=== PATIENT | female | born 1970 | race Caucasian/White ===

== ENCOUNTER 2016-08-03 10:44 | Emergency (ER) | payer OTHER ==
[2016-08-03 11:34] VITALS: RESP 16; TEMP 98.2
[2016-08-03] MEDS ORDERED: NS 1,000 ML IV ONE (11:58)
[2016-08-03] MEDS ORDERED: ONDANSETRON 4 MG/2 ML VIAL IVP ONE (11:59)
--- NOTE | 2016-08-03 11:59 | UCPHY ---
H & P Patient Type: New Chief Complaint Nursing Narrative: burning , constipation/ fullness, in abd. po solids unable to keep down since last Wednesday. Anxiety related pt believes. Just started celexa 3 days ago. Took xanax at 0500 Time Seen by Provider: 08/03/16 11:40 HPI/ROS: CHIEF COMPLAINT: Ongoing abdominal cramping, nausea, vomiting, diarrhea, early satiety HISTORY OF PRESENT ILLNESS: 46-year-old female history irritable bowel syndrome , notes increasing personal and professional stressors since June 2016, complaining of waxing and waning abdominal cramping, vomiting, nausea, diarrhea , early satiety which started shortly after going to see her family in [facility], [place], operated by [facility] who is experiencing family illness. While there she was seen in 2 urgent cares and emergency department. She notes that her symptoms do appear to improve she consumes Xanax. She has also seen her primary care provider and was recently prescribed Celexa which she started 3 days ago. She notes increasing anxiety since starting Celexa. Contacted her PCP this morning recommend she come to the Urgent Care for imaging studies of her abdomen. She has remote history of cholecystectomy. No history of other abdominal surgeries. She is concerned because a family history of colon cancer. She denies: Fever, chills, urinary complaints, back or flank pain, focal abdominal pain. PRIMARY CARE PROVIDER: Dr.Mira Almeida REVIEW OF SYSTEMS: A ten point review of systems was performed and is negative with the exception of the items mentioned in the HPI PAST MEDICAL & SURGICAL HISTORY: IBS. Anxiety. SOCIAL HISTORY: nonsmoker FAMILY HISTORY: family history of colon cancer PHYSICAL EXAM (Prior to examination, patient consented to physical exam, hands were washed and my usual and customary physical exam procedures followed) 1) GENERAL: Well-developed, well-nourished, alert and oriented. Appears anxious. Tearful. 2) HEAD: Normocephalic, atraumatic 3) HEENT: Pupils equal, round, reactive to light bilaterally. Sclera anicteric. Nasopharynx, oropharynx, clear, no lesions. Moist mucous membranes 4) NECK: Full range of motion, no meningeal signs. 5) LUNGS: Clear auscultation bilaterally, no wheezes, no rhonchi, no retractions. 6) HEART: Regular rate and rhythm, no murmur, no heave, no gallop. 7) ABDOMEN: No guarding, no rebound, no focal tenderness, negative McBurney's, negative Harris's, negative Rovsing's, negative peritoneal sign, I am unable to elicit any abdominal pain on exam 8) MUSCULOSKELETAL: Moving all extremities, no focal areas of tenderness, no obvious trauma. No peripheral edema or discoloration. 9) BACK: No CVA tenderness, no midline vertebral tenderness, no fluctuance, no step-off, no obvious trauma, no visual or palpable abnormality. 10) SKIN: No rash, no petechiae. 11) Psychiatric: Patient is oriented X 3, there is no agitation. DIFFERENTIAL DIAGNOSIS: [My differential diagnosis includes, but is not limited to, acute appendicitis, acute cholecystitis, bowel obstruction, acute pancreatitis, ovarian torsion, ectopic , gastritis and urinary tract infection. The patient understands that this diagnosis is provisional and can never be 100% accurate. This is a partial list of diagnoses considered. These considerations are based on history, physical exam, past history and reassessment. - Personal History LMP (Females 10-55): 22-28 Days Ago - Medical/Surgical History Other PMH: PCP Adrienne Almeida . Surg GB. MEDs : anxiety /hypothyroid/gerd /. FLu vacc NONE. Tetanus UTD - Family History Significant Family History: No pertinent family hx - Social History Smoking Status: Current some day smoker Constitutional: Initial Vital Signs Temperature (C) 36.8 C 08/03/16 11:28 Heart Rate 75 08/03/16 11:28 Respiratory Rate 16 08/03/16 11:28 Blood Pressure 128/86 H 08/03/16 11:28 O2 Sat (%) 95 08/03/16 11:28 O2 Delivery Mode Room Air Allergies/Adverse Reactions: avocado [Avocado] Allergy (Intermediate, Verified 08/03/16 11:35) STOMACH PAIN/BURNING pineapple [Pineapple] Allergy (Intermediate, Verified 08/03/16 11:35) STOMACH PAINS/BURNING LLOYD NUTS Allergy (Severe, Uncoded 08/03/16 11:35) NARES GETS REALLY WIDE ALMONDS Allergy (Intermediate, Uncoded 08/03/16 11:35) STOMACH PAIN/BURNING ENVIRONMENTAL Allergy (Mild, Uncoded 08/03/16 11:35) SNEEZING Home Medications: Medication Instructions Recorded Alprazolam 08/03/16 Celexa 08/03/16 Omeprazole 08/03/16 Ondansetron Odt [Zofran Odt] 4 mg PO Q4PRN PRN #10 tab 08/03/16 Synthroid 08/03/16 Medical Decision Making - Diagnostics Imaging: Contrast Enhanced CT Scan of the Abdomen and Pelvis Clinical History: 46-year-old female presenting to the ED with abdominal pain for one week and bloating, with some nausea and vomiting. Her surgical history is notable for a prior cholecystectomy. Rule out appendicitis. Technique: Oral contrast was not administered. Following the uncomplicated intravenous administration of 90 mL of Isovue-370, a multidetector helical CT scan was obtained from the lung bases inferiorly through the proximal femora, with images reformatted at 5.00 and 1.25 mm increments , and reviewed at a variety of window and level settings. Parasagittal and paracoronal reconstructed images are reviewed on the workstation. The DFOV is 40.7 cm. Dose reduction techniques were utilized. Comparison Study: Limited right upper quadrant abdominal sonography, dated September 24, 2011 Findings: Contrast-Enhanced CT Scan of the Abdomen: The lung bases are clear. The visualized cardiac chambers and pericardium are unremarkable. In the interim, the patient has had a cholecystectomy. The liver is notable for a 10 mm hypodense lesion near the gallbladder fossa. On the previous sonogram in 2011, there was an echogenic lesion in this location measuring 1.0 x 1.0 x 1.2 cm, suggesting that this may represent a small hemangioma. It does not have peripheral nodular enhancement, however delayed sequences were not acquired. The spleen, bile ducts , pancreas, adrenal glands, and the kidneys are normal in appearance. The aorta tapers normally, and the IVC is normal in caliber. There is no ascites or free air. There are some fluid-filled loops of duodenum and jejunum in the [id number] abdomen, with no mechanical obstruction. These are nonspecific findings; however, given the patient's symptoms, a low-grade enteritis cannot be excluded. The CT appearance of large bowel is unremarkable. The terminal ileum is fluid-filled, with no wall thickening. There is no pericecal inflammatory change. There is some rare nonpathologically enlarged right lower quadrant mesenteric lymph nodes. There is a short and tubular-shaped air- filled structure which could represent a truncated appendix with no associated inflammation noted on axial series 3, images 243-247. Contrast-Enhanced CT Scan of the Pelvis: There are no masses, free fluid, or free air. The bladder has a normal contour. There is normal enhancement of the vasculature. The soft tissues are normal in appearance. The uterus, round ligaments, and the adnexal structures appear normal. Skeletal System: Normal. Impression: 1. Status post cholecystectomy. 2. 10 mm hypodense lesion near the gallbladder fossa, previously reported on a sonogram in 2011. 3. There is no appendiceal or pericecal inflammation identified. 4. Possible low-grade duodenal and jejunal enteritis. There is no mechanical obstruction. Results were discussed with Ramon Olmstead PA-C. A Document Only message has been documented for Maureen Olmstead in the [employer] Critical Result system on 08/03/2016 13:35, Message ID [id number]. Dictated By: Garrick Perkins MD Images reviewed by myself ED Course/Re-evaluation: 1:49 p.m.: Re-evaluation. Discussed her diagnostic results including her CT imaging. Re-examined her abdomen which remained soft no guarding or rebound no McBurney's point pain. I am unable to elicit any abdominal pain on exam. No distention. discussed possible etiologies for her abdominal pain. At this time I think that acute surgical abdominal pathology such as acute bowel obstruction , acute appendicitis, less than likely. I recommended follow-up with her primary care provider and with Gastroenterology. She has been given this referral information. My usual andcustomary strict return precautions provided. - Data Points Laboratory Results: Laboratory Results 08/03/16 11:43 08/03/16 11:43 08/03/16 08/03/16 08/03/16 13:40 12:55 11:43 WBC 8.49 10^3/uL (3.80-9.50) RBC 4.82 10^6/uL (4.18-5.33) Hgb 15.4 g/dL (12.6-16.3) Hct 43.7 % (38.0-47.0) MCV 90.7 fL (81.5-99.8) MCH 32.0 pg (27.9-34.1) MCHC 35.2 g/dL (32.4-36.7) RDW 12.0 % (11.5-15.2) Plt Count 322 10^3/uL (150-400) MPV 10.2 fL (8.7-11.7) Neut % (Auto) 69.2 % (39.3-74.2) Lymph % (Auto) 22.5 % (15.0-45.0) Paulding % (Auto) 6.9 % (4.5-13.0) Eos % (Auto) 0.4 L % (0.6-7.6) Baso % (Auto) 0.8 % (0.3-1.7) Nucleat RBC Rel Count 0.0 % (0.0-0.2) Absolute Neuts (auto) 5.87 10^3/uL (1.70-6.50) Absolute Lymphs (auto) 1.91 10^3/uL (1.00-3.00) Absolute Monos (auto) 0.59 10^3/uL (0.30-0.80) Absolute Eos (auto) 0.03 10^3/uL (0.03-0.40) Absolute Basos (auto) 0.07 10^3/uL (0.02-0.10) Absolute Nucleated RBC 0.00 10^3/uL (0-0.01) Immature Gran % 0.2 % (0.0-1.1) Immature Gran # 0.02 10^3/uL (0.00-0.10) Sodium 141 mEq/L (134-144) Potassium 4.0 mEq/L (3.5-5.2) Chloride 106 mEq/L (97-110) Carbon Dioxide 22 mEq/l (22-31) Anion Gap 13 mEq/L (8-16) BUN 13 mg/dL (7-23) Creatinine 0.9 mg/dL (0.6-1.0) Estimated GFR > 60 Glucose 107 H mg/dL (70-100) Calcium 9.9 mg/dL (8.5-10.4) Total Bilirubin 0.9 mg/dL (0.1-1.4) Conjugated Bilirubin 0.3 mg/dL (0.0-0.5) Unconjugated Bilirubin 0.6 mg/dL (0.0-1.1) AST 16 IU/L (14-46) ALT 26 IU/L (9-52) Alkaline Phosphatase 59 IU/L (38-126) Total Protein 7.9 g/dL (6.3-8.2) Albumin 4.2 g/dL (3.5-5.0) Lipase 156.0 IU/L (23-300) Beta HCG, Qual NEGATIVE Urine Color YELLOW Urine Appearance CLEAR Urine pH 5.0 (5.0-7.5) Ur Specific Willits <= 1.005 (1.002-1.030) Urine Protein NEGATIVE (NEGATIVE) Urine Ketones NEGATIVE (NEGATIVE) Urine Blood NEGATIVE (NEGATIVE) Urine Nitrate NEGATIVE (NEGATIVE) Urine Bilirubin NEGATIVE (NEGATIVE) Urine Urobilinogen 0.2 EU (0.2-1.0) Ur Leukocyte Esterase NEGATIVE (NEGATIVE) Urine Glucose NEGATIVE (NEGATIVE) Medications Given: Discontinued Medications Sodium Chloride (Ns) 1,000 mls @ 0 mls/hr IV ONCE ONE PRN Reason: Wide Open Stop: 08/03/16 11:59 Last Admin: 08/03/16 12:20 Dose: 1,000 mls Lorazepam (Ativan Injection) 1 mg IVP EDNOW ONE Stop: 08/03/16 12:32 Last Admin: 08/03/16 12:40 Dose: 1 mg Ondansetron HCl (Zofran) 4 mg IVP EDNOW ONE Stop: 08/03/16 12:00 Last Admin: 08/03/16 12:21 Dose: 4 mg Departure - Departure Disposition: Home, Routine, Self-Care Clinical Impression: Nausea & vomiting Qualifiers: Vomiting type: unspecified Vomiting Intractability: non-intractable Qualifier Code: (R11.2) Nausea with vomiting, unspecified Condition: Good Instructions: Acute Nausea and Vomiting (ED) Additional Instructions: Seek immediate medical attention if you develop new or worsening symptoms, if you develop fevers, chills, inability to tolerate oral intake or any other symptoms that concerns you. Referrals: Telma Almeida MD [Primary Care Provider] - 1 day without fail Jarad Young MD, FACG [Medical Doctor] - 5-7 days, call for appt. (Dr. Jarad Young is a network control operator) Prescriptions: Ondansetron Odt [Zofran Odt] 4 mg PO Q4PRN PRN #10 tab PRN Reason: Nausea - PQRS PQRS Measurement: Not applicable
[2016-08-03] MEDS ORDERED: IOPAMIDOL (ISOVUE 370) 100 ML BTL IV ONE (12:15)
[2016-08-03 12:23] LABS: % IMMATURE GRANULYOCYTES 0.2 % (0.0-1.1); ABSOLUTE IMMATURE GRANULOCYTES 0.02 10^3/uL (0.00-0.10); ADD DIFF? NO; ADD MORPH? NO; ADD SCAN? NO; ATYPICAL LYMPHOCYTE FLAG 10 (0-99); FRAGMENT RBC FLAG 0 (0-99); HEMATOCRIT 43.7 % (38.0-47.0); HEMOGLOBIN 15.4 g/dL (12.6-16.3); LEFT SHIFT FLG 0 (0-99); LIPEMIA HEMOLYSIS FLAG 90 (0-99); MEAN CELL HEMOGLOBIN CONCENTR. 35.2 g/dL (32.4-36.7); MEAN CELL VOLUME 90.7 fL (81.5-99.8); MEAN PLATELET VOLUME 10.2 fL (8.7-11.7); PLATELET CLUMPS FLAG 0 (0-99); PLATELET COUNT 322 10^3/uL (150-400); RED BLOOD CELL COUNT 4.82 10^6/uL (4.18-5.33)
[2016-08-03 12:30] LABS: ALANINE AMINOTRANSFERASE 26 IU/L (9-52); ALBUMIN 4.2 g/dL (3.5-5.0); ALKALINE PHOSPHATASE 59 IU/L (38-126); ANION GAP 13 mEq/L (8-16); ASPARTATE AMINOTRANSFERASE 16 IU/L (14-46); BILIRUBIN,TOTAL 0.9 mg/dL (0.1-1.4); BILIRUBIN-CONJUGATED 0.3 mg/dL (0.0-0.5); BILIRUBIN-UNCONJUGATED 0.6 mg/dL (0.0-1.1); CALCIUM 9.9 mg/dL (8.5-10.4); CARBON DIOXIDE 22 mEq/l (22-31); CHLORIDE 106 mEq/L (97-110); CREATININE 0.9 mg/dL (0.6-1.0); GLOMERULAR FILTRATION RATE > 60; GLUCOSE 107 mg/dL (70-100); SODIUM 141 mEq/L (134-144); TOTAL PROTEIN 7.9 g/dL (6.3-8.2)
[2016-08-03] MEDS ORDERED: LORazepam 2 MG/ML INJ IVP ONE (12:31)
--- NOTE | 2016-08-03 13:44 | CT ---
Contrast Enhanced CT Scan of the Abdomen and Pelvis Clinical History: 46-year-old female presenting to the ED with abdominal pain for one week and bloati ng, with some nausea and vomiting. Her surgical history is notable for a prior cholecystectomy. Rule out appendicitis. Technique: Oral contrast was not administered. Following the uncomplicated intravenous administration of 90 mL of Isovue-370, a multidetector helical CT scan was obtained from the lung bases inferiorly through the proximal femora, with images reformatted at 5.00 and 1.25 mm increments, and reviewed at a variety of window and level settings. Parasagittal and paracoronal reconstructed images are reviewe d on the workstation. The DFOV is 40.7 cm. Dose reduction techniques were utilized. Comparison Study: Limited right upper quadrant abdominal sonography, dated September 24, 2011 Findings: Contrast-Enhanced CT Scan of the Abdomen: The lung bases are clear. The visualized cardiac chambers a nd pericardium are unremarkable. In the interim, the patient has had a cholecystectomy. The liver is notable for a 10 mm hypodense lesion near the gallbladder fossa. On the previous sonogram in 2011, th ere was an echogenic lesion in this location measuring 1.0 x 1.0 x 1.2 cm, suggesting that this may r epresent a small hemangioma. It does not have peripheral nodular enhancement, however delayed sequenc es were not acquired. The spleen, bile ducts, pancreas, adrenal glands, and the kidneys are normal in appearance. The aorta tapers normally, and the IVC is normal in caliber. There is no ascites or free air. There are some fluid-filled loops of duodenum and jejunum in the [id number] abdomen, with no mechanical obstruction. These are nonspecific findings; however, given the patient's symptoms, a low-grade enteritis cannot be excluded. The CT appearance of large bowel is unremarkable. The termina l ileum is fluid-filled, with no wall thickening. There is no pericecal inflammatory change. There is some rare nonpathologically enlarged right lower quadrant mesenteric lymph nodes. There is a short a nd tubular-shaped air-filled structure which could represent a truncated appendix with no associated inflammation noted on axial series 3, images 243-247. Contrast-Enhanced CT Scan of the Pelvis: There are no masses, free fluid, or free air. The bladder gómez s a normal contour. There is normal enhancement of the vasculature. The soft tissues are normal in ap pearance. The uterus, round ligaments, and the adnexal structures appear normal. Skeletal System: Normal. Impression: 1. Status post cholecystectomy. 2. 10 mm hypodense lesion near the gallbladder fossa, previously reported on a sonogram in 2011. 3. There is no appendiceal or pericecal inflammation identified. 4. Possible low-grade duodenal and jejunal enteritis. There is no mechanical obstruction. Results were discussed with Ramon Olmstead PA-C. A Document Only message has been documented for Maureen Olmstead in the [employer] [facility] system on 08/03/2016 13:35, Message ID [id number].
[2016-08-03 13:46] LABS: COLOR YELLOW; LEUKOCYTE ESTERASE,URINE NEGATIVE (NEGATIVE); NITRITE,URINE NEGATIVE (NEGATIVE)
[2016-08-03 15:53] VITALS: BP 129/84; PULSE 74; O2SAT 97
== END 2016-08-03 14:40 | disposition home or self-care (01) ==
LOC: CED 10:44
DX: R10.9 Unspecified abdominal pain (principal); R11.2 Nausea with vomiting, unspecified; R19.7 Diarrhea, unspecified; Z87.19 Personal history of other diseases of the digestive system
CPT/HCPCS: 74177-PO; 80048-PO; 80076-PO; 81003-PO; 83690-PO; 84703-PO; 85025-PO; 96361-PO; 96374-PO; 96375-PO; 99205-PO; G0463-PO; J2405; Q9967

== ENCOUNTER → 2016-11-27 | Outpatient (CLI) | payer OTHER | LOC: CIMAGING 14:50 | DX: Z12.31 Encounter for screening mammogram for malignant neoplasm of breast (principal) | CPT/HCPCS: G0202 ==

== ENCOUNTER → 2017-12-10 | Outpatient (CLI) | payer OTHER | LOC: CIMAGING 14:33 | PROVIDERS: ATTEND Family Medicine | DX: Z12.31 Encounter for screening mammogram for malignant neoplasm of breast (principal) ==

== ENCOUNTER → 2018-12-12 | Outpatient (CLI) | payer OTHER | LOC: EMCIMAGING 10:08 ==